=== PATIENT | female | born 1995 | race Caucasian/White ===

== ENCOUNTER 2022-12-17 08:07 | Outpatient (CLI) | payer OTHER, SELFPAY | END 2022-12-17 08:08 | disposition home or self-care (01) | PROVIDERS: PCP Physician Assistant Medical; Referring Provider Physician Assistant Medical; Visit Provider Physician Assistant Medical | DX: E53.8 Deficiency of other specified B group vitamins (principal); R53.83 Other fatigue; Z13.6 Encounter for screening for cardiovascular disorders | CPT/HCPCS: 80053; 80061; 82306; 82607; 82728; 84443 ==

== ENCOUNTER 2025-02-20 19:05 | Emergency (ER) | payer OTHER, SELFPAY ==
[2025-02-20 19:29] VITALS: BP 112/71; PULSE 85; RESP 16; TEMP 37; O2SAT 100; BMI 29.0
--- NOTE | 2025-02-20 19:34 | CRLHL7_ITS ---
For Patients: As a result of the Cures Act, medical imaging exams and procedure reports are released immediately into your electronic medical record. You may view this report before your referring provider. If you have questions, please contact your health care provider. INDICATION: 10 weeks and bleeding COMPARISON: None TECHNIQUE: First trimester obstetrical ultrasound, transabdominal approach, utilizing grayscale and color Doppler as needed FINDINGS: Single living intrauterine with crown-rump length measuring 3.0 centimeters consistent with a 10 week and 0 day gestation. Normal heart rate measuring 165 beats per minute. Normal-appearing gestational and yolk sacs. No subchorionic hemorrhage. The cervix is unremarkable. The bilateral ovaries are not visualized likely secondary to ovarian position overlying gas. No suspicious adnexal lesions. No free fluid. IMPRESSION: Single living intrauterine gestation with estimated gestational age of 10 weeks and 0 days and estimated delivery date of 09/18/2025. No sonographic evidence of abnormality. Dictated by Oswaldo Blanton MD @ 02/20/2025 8:20:04 PM (Electronically Signed)
[2025-02-20 20:41] LABS: Appearance Urine Clear (Clear)
--- NOTE | 2025-02-20 20:49 | ED_ITS ---
HPI - General Adult General Time Seen by Provider: 20:49 Date Seen: 02/20/25 Chief complaint: Vaginal Bleeding Stated complaint: 10 weeks heavy bleeding Time Seen by Provider: 02/20/25 20:49 Source: patient, RN notes reviewed and old records reviewed Mode of arrival: ambulatory Limitations: no limitations History of Present Illness HPI narrative: Lina is a very pleasant at 9+ 6 weeks based on LMP of 820/25 otherwise healthy who comes to the emergency room with vaginal bleeding. Patient notes that she had her 1st OB appointment with Dr. Meka Del Castillo of the [facility]. She notes that everything seemed to go well and she did have some labs drawn at that time. She notes that this evening she was in a meeting when she felt like she was peeing on herself she sought felt something warm. She looked and she had some bright red blood on her underwear. She described is is having a period. She had no clots. She had no abdominal cramping or abdominal pain nausea fever or dysuria. She went home and did speak to her physician who told her she could go to the emergency room tonight or follow-up tomorrow morning. She notes that she wanted to follow-up tonight. Since she has been here the bleeding seems to have slowed down. She underwent an ultrasound and urinalysis prior to me seeing her. She denies chest pain shortness of breath any recent trauma or fall. She has no personal or family history of bleeding disorders or coagulopathies. She does not nor blood type but does have access to her portal and is going to look that up for me. Related Data Home Medications ?Medication ?Instructions ?Recorded ?Confirmed levonorgestrel (Mirena) 1 device intrauterine ONCE 1 02/20/25 Held on 02/20/25. Instructions: Doctor's Order Allergies Allergy/AdvReac Type Severity Reaction Status Date / Time No Known Drug Allergies Allergy Verified 12/03/22 09:07 Review of Systems Status of ROS: Reports: 6 or more systems reviewed and unremarkable except as noted in History and below Const: Denies: fever or chills Eyes: Denies: change in vision ENMT: Denies: throat pain Cardio: Denies: chest pain or shortness of breath with exertion Resp: Denies: shortness of breath GI: Denies: abdominal pain, nausea or vomiting : Denies: painful urination Musculo: Denies: back pain PFSH PFSH Social History What is your current living situation?: I presently have a place to live Problems where you live: no known problems In the past 12 months, utilities in danger of being shut off: no In past 12 months, lack of transportation kept you from medical appts, meetings, work, or getting things needed for daily living: no In the past 12 mos, have been you worried that your food would run out before you had money to buy more?: never true In the past 12 mos, the food you bought just didn't last and you didn't have money to buy more?: never true Smoking Status: Never smoker How often does anyone, including family, friends and others, physically hurt you : never How often does anyone, including family, friends and others, insult or talk down to you: never How often does anyone, including family, friends and others, threaten you with harm: never How often does anyone, including family, friends and others, scream or curse at you: never Exam Narrative: Exam Narrative: Lina is alert and oriented. Very pleasant young woman. I do inform her that the ultrasound does show viable . She and her appear obviously relieve. External ears eyes nose clear. Neck is supple. Heart with regular rate and rhythm and lungs are clear. Abdomen is soft nontender. No CVA tenderness percussion. Able to ambulate and move without difficulty. I was able to look at patient's of external genitalia and underwear and there is no excessive bleeding at this time. Const: Vital Signs, click to edit/add: Vital Signs - 24 hr 02/20/25 19:29 Temperature 98.6 F Pulse Rate [Pulse Oximeter] 85 Respiratory Rate 16 Blood Pressure [Ri ght Upper Arm] 112/71 Pulse Oximetry 100 Oxygen Delivery Me thod Room Air Documenting provider has reviewed patient's vital signs: yes Course Course ED Course: Differential diagnosis includes but is not limited to vaginal bleeding in , threatened , ectopic . Ultrasound reassuring at this time. Were able to look on patient's portal and her blood type is O positive so thus not a candidate for RhoGAM. Vital Signs Vital signs: Initial Vital Signs Temperature 98.6 F 10/27/25 19:29 Temperature Source Temporal Artery Scan 02/20/25 19:29 Pulse Rate 85 02/20/25 19:29 Respiratory Rate 16 02/20/25 19:29 Blood Pressure 112/71 02/20/25 19:29 Blood Pressure Mean 84 02/20/25 19:29 Blood Pressure Position Sitting 02/20/25 19:29 Pulse Oximetry 100 02/20/25 19:29 Oxygen Delivery Method Room Air 02/20/25 19:29 Vital Signs Temperature 98.6 F 02/20/25 19:29 Pulse Rate 85 02/20/25 19:29 Respiratory Rate 16 02/20/25 19:29 Blood Pressure 112/71 02/20/25 19:29 Pulse Oximetry 100 02/20/25 19:29 Oxygen Delivery Method Room Air 02/20/25 19:29 Temperature 98.6 F 02/20/25 19:29 Pulse Rate 85 02/20/25 19:29 Respiratory Rate 16 02/20/25 19:29 Blood Pressure 112/71 02/20/25 19:29 Pulse Oximetry 100 02/20/25 19:29 Oxygen Delivery Method Room Air 02/20/25 19:29 Medical Decision Making MDM Narrative Medical decision making narrative: 1. Vaginal bleeding in -this has some stopped as I see no current bleeding. With normal vital signs and description did not feel the need to draw hemoglobin. No evidence of tachycardia, hypotension, shortness of breath or lightheadedness. Continue to monitor in should this become worse will need to have subsequent ED visit or medical attention. 2. First trimester -reassurance at this time. I was honest in stating that the bleeding may continue in this may be early miscarriage but at this time we do appear to have a in the uterus with heartbeat. No evidence of subchorionic hemorrhage. I did state that there is nothing that patient did to cause this bleeding normal nothing she could do to prevent a miscarriage should that be coming. She understands. Would have her follow-up with her primary MD and of course return to the ER for worsening symptoms. 3. Disposition-home at this time. Return as needed. Medical Records Medical records reviewed: Yes I reviewed the patient's medical records Medical records narrative: Reviewed labs on patient's portal. She is O-positive Lab Data Lab results reviewed: Yes I reviewed the patient's lab results Lab results narrative: No evidence of UTI Labs: Lab Results 02/20/25 Range/Units 20:21 Urine Color Yellow (Yellow) Urine Appearance Clear (Clear) Urine pH 7.0 (5.0-8.5) Ur Specific Emblem 1.010 (1.000-1.030) Urine Protein Negative (Negative) Urine Glucose (UA) Negative (Negative) Urine Ketones Negative (Negative) Urine Blood 3+ A (Negative) Urine Nitrite Negative (Negative) Urine Bilirubin Negative (Negative) Urine Urobilinogen 0.2 (0.2-1.0) Ur Leukocyte Esterase Negative (Negative) Urine RBC 5-10 A (0-2) Urine WBC 0-2 (0-5) Ur Squamous Epith Cells Few (None-Few) Urine Bacteria None (None) Imaging Data US - abdomen: Attestation: I have reviewed the pertinent imaging results. Radiologist's impression: reji living intrauterine with crown-rump length measuring 3.0 centimeters consistent with a 10 week and 0 day gestation. Normal heart rate measuring 165 beats per minute. Normal-appearing gestational and yolk sacs. No subchorionic hemorrhage. The cervix is unremarkable. The bilateral ovaries are not visualized likely secondary to ovarian position ov erlying gas. No suspicious adnexal lesions. No free fluid. IMPRESSION: Single living intrauterine gestation with estimated gestational age of 10 weeks and 0 days and estimated delivery date of 09/18/2025. No sonographic evidence of abnormality. Discharge Plan Discharge Clinical Impression: Vaginal bleeding, First trimester Patient Disposition: Home, Self-Care Condition: Improved Additional Instructions: Recommend resting and following up with your OB for further instruction. Seek medical attention for fever, increased bleeding causing lightheadedness shortness of breath or fainting. Return to the emergency room as needed. Prescriptions: No Action Mirena 20 mcg/24 hours (8 yrs) 52 mg intrauterine device 1 device intrauterine ONCE Rx Instructions: as a single dose Follow Up/Referrals: Sekou George PA-C [Physician [facility]] Stand Alone Forms: [facility] Info Instructions
== END 2025-02-20 21:15 | disposition home or self-care (01) ==
LOC: ED 21:08
PROVIDERS: Emergency Provider Family Medicine
DX: O46.91 Antepartum hemorrhage, unspecified, first trimester (principal)
CPT/HCPCS: 76801; 81001; 99283; 99284